=== PATIENT | female | born 1990 | race Caucasian/White ===

== ENCOUNTER 2022-01-17 00:28 | Inpatient (IN) | payer MEDICAID ==
[2022-01-17] MEDS ORDERED: Water For Irrigation,Sterile 1,000 ML Container IRR PRN (01:26)
[2022-01-17] MEDS ORDERED: Sodium Chloride 0.9% 20 ML SDV IV PRN (01:26)
[2022-01-17] MEDS ORDERED: Misoprostol 200 MCG Tab PO PRN (01:26)
[2022-01-17] MEDS ORDERED: Ampicillin 2 GM in Sodium Chloride 0.9% 100 ML IV ONE (01:26)
[2022-01-17] MEDS ORDERED: Terbutaline 1 MG/ML SDV SUBCUT PRN (01:26)
[2022-01-17] MEDS ORDERED: Sodium Chloride 0.9% 10 ML Syringe FLUSH PRN (01:26)
[2022-01-17] MEDS ORDERED: Butorphanol 1 MG/ML SDV IVPUSH PRN (01:26)
[2022-01-17] MEDS ORDERED: Lidocaine 1% 50 ML MDV INJECT PRN (01:26)
[2022-01-17] MEDS ORDERED: Sodium Chloride 0.9% 2.5 ML Syringe FLUSH PRN (01:26)
[2022-01-17] MEDS ORDERED: Misoprostol 25 MCG (1/4 of 100 MCG) Tab VAG PRN ×2 (01:26)
[2022-01-17] MEDS ORDERED: Carboprost Tromethamine 250 MCG/1 ML Amp IM PRN (01:26)
[2022-01-17] MEDS ORDERED: Ondansetron 4 MG/2 ML SDV IVPUSH PRN (01:26)
[2022-01-17] MEDS ORDERED: Tranexamic Acid 1,000 MG in Sodium Chloride 0.9% 100 ML IV PRN (01:26)
[2022-01-17] MEDS ORDERED: Methylergonovine 0.2 MG/1 ML Amp IM PRN (01:26)
[2022-01-17] MEDS ORDERED: Oxytocin/0.9 % Sodium Chloride 30 UNIT/500 ML BAG IV SCH ×2 (01:30)
[2022-01-17] MEDS: Misoprostol 25 MCG (1/4 of 100 MCG) Tab PO PRN ×2 (01:56→07:47)
[2022-01-17] MEDS: Ampicillin 1 GM in Sodium Chloride 0.9% 50 ML IV SCH ×3 (06:03→14:15)
[2022-01-17] MEDS: Lactated Ringers 1,000 ML IV SCH ×2 (09:48→13:30)
[2022-01-17] MEDS ORDERED: Phenylephrine HCl In 0.9% NaCl 1 MG/10 ML Vial ONE (09:52)
[2022-01-17] MEDS ORDERED: Bupivacaine 0.5% 10 ML SDV ONE (09:52)
[2022-01-17] MEDS ORDERED: Ropivacaine/PF 400 MG/200 ML PCA ONE (09:53)
[2022-01-17] MEDS ORDERED: Lanolin 100% Cream 7 GM Tube TOP PRN (19:50)
[2022-01-17] MEDS ORDERED: Benzocaine/Menthol 20%-0.5% Spray 78 GM Cannister TOP PRN (19:50)
[2022-01-17] MEDS ORDERED: Witch Hazel Medicated Pads 40/Jar TOP PRN (19:50)
[2022-01-17] MEDS ORDERED: Ibuprofen 400 MG Tab PO PRN (19:50)
[2022-01-17] MEDS ORDERED: Acetaminophen 500 MG Tab PO PRN (19:50)
[2022-01-17] MEDS ORDERED: Bisacodyl 10 MG Supp RECTAL PRN (19:50)
[2022-01-17] MEDS ORDERED: Docusate Sodium 100 MG Cap PO PRN (19:50)
[2022-01-17] MEDS ORDERED: oxyCODONE 5 MG Tab PO PRN (19:50)
[2022-01-17] MEDS: Ibuprofen 800 MG Tab PO PRN (21:09)
[2022-01-18] MEDS: Acetaminophen 500 MG Tab PO PRN ×2 (02:59→09:07)
[2022-01-18] MEDS: Ibuprofen 800 MG Tab PO PRN (02:59)
== END 2022-01-18 17:45 | disposition home or self-care (01) | DRG 807 ==
LOC: MW.OBCHECK 00:28 → MW.OB 00:30 → MW.OBCHECK 01:25 → MW.OB 01:26 → OBSVTOIN 19:51
PROVIDERS: ADMIT Obstetrics & Gynecology Obstetrics; ATTEND Obstetrics & Gynecology Obstetrics
PROC: 10E0XZZ Delivery of Products of Conception, External Approach (ICD-10-PCS; principal; 2022-01-17)
PROC: 10907ZC Drainage of Amniotic Fluid, Therapeutic from Products of Conception, Via Natural or Artificial Opening (ICD-10-PCS; 2022-01-17)
PROC: 3E0R3BZ Introduction of Anesthetic Agent into Spinal Canal, Percutaneous Approach (ICD-10-PCS; 2022-01-17)
PROC: 00HU33Z Insertion of Infusion Device into Spinal Canal, Percutaneous Approach (ICD-10-PCS; 2022-01-17)
DX: O99.824 Streptococcus B carrier state complicating childbirth (principal); Z37.0 Single live birth; Z3A.39 39 weeks gestation of pregnancy; O77.0 Labor and delivery complicated by meconium in amniotic fluid; Z20.822 Contact with and (suspected) exposure to COVID-19
CPT/HCPCS: 01967; 36415; 51702; 59025; 59409; 85014; 85018; 85027; 86592; 86850; 86900; 86901; A9270-GY; J0290; J2405; J2590; J2795; J3490; J7120; U0002

== ENCOUNTER 2024-10-29 12:32 | Inpatient (IN) | payer BC ==
[2024-10-29] MEDS ORDERED: Oxytocin/0.9 % Sodium Chloride 30 UNIT/500 ML BAG IV SCH ×2 (13:00→21:30)
[2024-10-29] MEDS ORDERED: Butorphanol 1 MG/ML SDV IVPUSH PRN (13:00)
[2024-10-29] MEDS ORDERED: Water For Irrigation,Sterile 1,000 ML Container IRR PRN (13:00)
[2024-10-29] MEDS ORDERED: Carboprost Tromethamine 250 MCG/1 mL Vial IM PRN ×2 (13:00→21:29)
[2024-10-29] MEDS ORDERED: Sodium Chloride 0.9% 2.5 ML Syringe FLUSH PRN ×2 (13:00→21:29)
[2024-10-29] MEDS ORDERED: Sodium Chloride 0.9% 10 ML Syringe FLUSH PRN ×2 (13:00→21:29)
[2024-10-29] MEDS ORDERED: Ondansetron 4 MG/2 ML SDV IVPUSH PRN ×4 (13:00→21:29)
[2024-10-29] MEDS ORDERED: fentaNYL 100 MCG/2 ML SDV ONE ×2 (13:04→19:14)
[2024-10-29] MEDS ORDERED: dexmedeTOMIDine HCl 200 MCG/2 ML SDV ONE ×2 (13:04→19:21)
[2024-10-29 13:09] LABS: MEAN PLATELET VOLUME 12.4 fL (9.4-12.3); NRBC ABSOLUTE 0.00 K/uL (0.00-0.02); NRBC PERCENT 0.0 /100WBC (0.0-0.2); PLATELET COUNT,PLT 177 K/uL (150-400); RED BLOOD CELL COUNT 4.26 M/uL (4.10-5.30); WHITE BLOOD CELL COUNT,WBC 7.24 K/uL (3.9-11.3)
[2024-10-29] MEDS ORDERED: ePHEDrine 50 MG/ML SDV IVPUSH PRN (13:26)
[2024-10-29] MEDS ORDERED: Ropivacaine HCl/PF 400 MG in Premix Bag 1 BAG EPIDUR SCH (13:30)
[2024-10-29] MEDS ORDERED: dexmedeTOMIDine HCl 200 MCG/2 ML SDV EPIDUR SCH (13:30)
[2024-10-29] MEDS: Ropivacaine HCl/PF 200 ML ONE (14:49)
[2024-10-29] MEDS: Lactated Ringers 1,000 ML IV SCH (14:55)
[2024-10-29] MEDS: Oxytocin/0.9 % Sodium Chloride 30 UNIT/500 ML BAG IV SCH (18:00)
[2024-10-29] MEDS ORDERED: Ondansetron 4 MG/2 ML SDV ONE (19:13)
[2024-10-29] MEDS ORDERED: Oxytocin 10 Units/1 ML SDV ONE (19:13)
[2024-10-29] MEDS ORDERED: Morphine PF 10 MG/10 ML SDV ONE (19:17)
[2024-10-29] MEDS ORDERED: Dexamethasone 4 MG/ML 5 ML MDV ONE (19:19)
[2024-10-29] MEDS ORDERED: droPERidol 2.5 MG/ML SDV ONE (19:24)
[2024-10-29] MEDS ORDERED: diphenhydrAMINE 50 MG/ML SDV IVPUSH PRN (20:37)
[2024-10-29] MEDS ORDERED: Nalbuphine 10 MG/1 ML Vial IVPUSH PRN (20:37)
[2024-10-29] MEDS ORDERED: Albuterol 0.083% 2.5 MG/3 ML Neb Soln NEB PRN (20:37)
[2024-10-29] MEDS ORDERED: fentaNYL 100 MCG/2 ML SDV IVPUSH PRN (20:37)
[2024-10-29] MEDS ORDERED: Naloxone 0.4 MG/ML SDV IVPUSH PRN (20:37)
[2024-10-29] MEDS ORDERED: fentaNYL 50 MCG/ML SDV IVPUSH PRN (20:37)
[2024-10-29] MEDS ORDERED: Diphtheria,Pertussis(Acell),Tetanus Vaccine 0.5 ML Syringe IM ONE (21:29)
[2024-10-29] MEDS ORDERED: Measles, Mumps & Rubella Vaccine 0.5 ML SDV SUBCUT ONE (21:29)
[2024-10-29] MEDS: Ketorolac 30 MG/ML SDV IVPUSH SCH (22:40)
[2024-10-29] MEDS: Lanolin 100% Cream 7 GM Tube TOP PRN (22:42)
[2024-10-30] MEDS ORDERED: Ketorolac 30 MG/ML SDV IVPUSH SCH (02:40)
[2024-10-30] MEDS: ceFAZolin 3 GM in Water For Injection, Sterile 30 ML IVPUSH SCH (02:42)
[2024-10-30] MEDS: Ketorolac 30 MG/ML SDV IVPUSH SCH (05:14)
[2024-10-30 05:48] LABS: BASOPHILS ABSOLUTE AUTO 0.02 K/uL (0.00-0.20); BASOPHILS PERCENT AUTO 0.1 % (0.0-1.0); EOSINOPHILS ABSOLUTE AUTO 0.00 K/uL (0.00-0.45); EOSINOPHILS PERCENT AUTO 0.0 % (0.0-6.0); IMMATURE GRAN ABSOLUTE AUTO 0.06 K/uL (0.00-0.05); IMMATURE GRAN PERCENT AUTO 0.4 % (0.0-0.4); LYMPHOCYTES ABSOLUTE AUTO 1.25 K/uL (1.00-4.80); LYMPHOCYTES PERCENT AUTO 7.3 % (24.0-44.0); MEAN PLATELET VOLUME 12.2 fL (9.4-12.3); MONOCYTES ABSOLUTE AUTO 0.62 K/uL (0.00-0.80); MONOCYTES PERCENT AUTO 3.6 % (0.0-8.0); NEUTROPHILS ABSOLUTE AUTO 15.13 K/uL (1.80-7.70); NEUTROPHILS PERCENT AUTO 88.6 % (41.0-71.0); NRBC ABSOLUTE 0.00 K/uL (0.00-0.02); NRBC PERCENT 0.0 /100WBC (0.0-0.2); PLATELET COUNT,PLT 171 K/uL (150-400); RED BLOOD CELL COUNT 3.81 M/uL (4.10-5.30); WHITE BLOOD CELL COUNT,WBC 17.08 K/uL (3.9-11.3)
[2024-10-31] MEDS ORDERED: Benzocaine/Menthol 20%-0.5% Spray 78 GM Cannister TOP PRN (08:32)
[2024-10-31] MEDS ORDERED: Witch Hazel Medicated Pads 40/Jar TOP PRN (08:40)
[2024-11-01] MEDS: Acetaminophen/oxyCODONE 325-5 MG Tab PO PRN (04:03)
== END 2024-11-01 11:08 | disposition home or self-care (01) | DRG 540 ==
LOC: MW.OBCHECK 12:32 → MW.OB 12:35 → MW.OBCHECK 13:00 → OBSVTOIN 19:12 → MW.OB 19:12
PROVIDERS: ADMIT Obstetrics & Gynecology Obstetrics; ATTEND Obstetrics & Gynecology Obstetrics
PROC: 4A1HXCZ Monitoring of Products of Conception, Cardiac Rate, External Approach (ICD-10-PCS; 2024-10-29)
PROC: 10D00Z1 Extraction of Products of Conception, Low, Open Approach (ICD-10-PCS; 2024-10-29)
PROC: 10E0XZZ Delivery of Products of Conception, External Approach (ICD-10-PCS; principal; 2024-10-29 18:50)
DX: O30.043 Twin pregnancy, dichorionic/diamniotic, third trimester (principal); O99.214 Obesity complicating childbirth; O99.824 Streptococcus B carrier state complicating childbirth; Z3A.37 37 weeks gestation of pregnancy; Z37.2 Twins, both liveborn; E66.813 Obesity, class 3; O32.1XX2 Maternal care for breech presentation, fetus 2
CPT/HCPCS: 01967; 01968; 36415; 51702; 59025; 59409; 74018; 74018-26; 76815; 84112; 85025; 85027; 86592; 86850; 86900; 86901; 99140; A4216; A9270-GY; J0290; J0456; J0665; J0690; J1100; J1790; J1885; J2274; J2371; J2405; J2590; J2795; J3010; J7120